=== PATIENT | male | born 1960 | race Caucasian/White ===

== ENCOUNTER → 2020-04-19 | Outpatient (CLI) | payer OTHER ==
[~2020-04-19] MED LIST: ALAVERT10 M1 PO; AMBIEN5 MG PO; BACTRIM DS 8001 TA1 PO; EC NAPROSYN500 MG PO; FEOSOL300 MG PO; FLOVENT 220 M220 MCG INH; JANUVIA100 MG PO; KEFLEX500 MG PO; LEXAPRO20 MG PO; LISINOPRIL HCTZ1 TA1 PO; LISINOPRIL10 MG PO; LISINOPRIL20 MG PO; LOPRESSOR25 MG PO; LOVASTATIN20 MG PO; METFORMIN500 MG PO; NAPROSYN500 MG PO; NORCO 325 MG-51 TAB PO; PARAFON FORTE500 MG PO; PROAIR HFA0.09 MG/AC INH; PROTONIX40 MG PO; VENTOLIN0.09 MG/AC INH
[2020-04-19 10:25] LABS: BASO # 0.1 10*3/uL (0.0-0.1); BASO % 0.5 % (0.0-1.0); EOS # 0.2 10*3/uL (0.0-0.4); EOS % 1.3 % (1.0-4.0); HEMATOCRIT 43.1 % (42.0-52.0); LYMPH # 2.3 10*3/uL (1.3-4.4); LYMPH % 18.9 % (27.0-41.0); MEAN CELL VOLUME 94.3 fl (80.0-94.0); MEAN CORPUSCULAR HGB 30.6 pg (27.0-31.0); MEAN CORPUSCULAR HGB CONC 32.5 g/dl (33.0-37.0); MEAN PLATELET VOLUME 10.7 fl (9.6-12.3); MONO # 0.7 10*3/uL (0.1-1.0); MONO % 5.8 % (3.0-9.0); NEUT # 8.9 10*3/uL (2.3-7.9); NEUT % 73.1 % (47.0-73.0); PLATELET COUNT AUTOMATED 253 10*3/uL (130-400); RED BLOOD COUNT 4.57 10*6/uL (4.50-5.90); RED CELL DISTRI WIDTH 13.9 % (0-14.5); WHITE BLOOD COUNT 12.2 10*3/uL (4.8-10.8)
[2020-04-19 10:52] LABS: ALBUMIN 3.1 gm/dl (3.1-4.5); ALKALINE PHOSPHATASE 85 U/L (45-117); BUN 24 mg/dl (7-24); CHLORIDE 109 mmol/L (98-107); CHOLESTEROL 138 mg/dL (<200); CREATININE 1.28 mg/dL (0.70-1.30); HDL CHOLESTEROL 45 mg/dl (40-60); LDL CHOLESTEROL 67 mg/dL (9-159); POTASSIUM 4.2 mmol/L (3.5-5.1); SGOT/AST 8 IU/L (3-35); SGPT/ALT 18 U/L (12-78); SODIUM 141 mmol/L (136-145); TOTAL PROTEIN 6.8 gm/dL (6.4-8.2); TRIGLYCERIDES 131 mg/dl (<150); URIC ACID 7.2 mg/dL (3.5-7.2); VLDL CHOLESTEROL 26 mg/dL (6-40)
== END | disposition home or self-care (01) ==
LOC: LAB 09:57
PROVIDERS: ATTEND Nurse Practitioner Family
DX: I10 Essential (primary) hypertension (principal); E78.2 Mixed hyperlipidemia; E11.65 Type 2 diabetes mellitus with hyperglycemia; M10.9 Gout, unspecified

== ENCOUNTER 2021-01-23 11:26 | Inpatient (IN) | payer OTHER ==
[~2021-01-23] VITALS: Ht 180.3 cm; Wt 176.4 kg
[~2021-01-23 11:26] MED LIST changes: -PROAIR HFA0.09 MG/AC INH; +PROAIR HFA8.5 GM INH
[2021-01-23 11:27] VITALS: BP 187/88
[2021-01-23 12:00] VITALS: BP 130/80
[2021-01-23 12:05] LABS: BASO % 0.3 % (0.0-1.0); EOS # 0.1 10*3/uL (0.0-0.4); EOS % 0.7 % (1.0-4.0); HEMATOCRIT 40.2 % (42.0-52.0); LYMPH # 1.3 10*3/uL (1.3-4.4); LYMPH % 9.8 % (27.0-41.0); MEAN CELL VOLUME 94.6 fl (80.0-94.0); MEAN CORPUSCULAR HGB 30.6 pg (27.0-31.0); MEAN CORPUSCULAR HGB CONC 32.3 g/dl (33.0-37.0); MEAN PLATELET VOLUME 10.2 fl (9.6-12.3); MONO # 0.9 10*3/uL (0.1-1.0); MONO % 6.3 % (3.0-9.0); NEUT # 11.2 10*3/uL (2.3-7.9); NEUT % 82.5 % (47.0-73.0); PLATELET COUNT AUTOMATED 297 10*3/uL (130-400); RED BLOOD COUNT 4.25 10*6/uL (4.50-5.90); RED CELL DISTRI WIDTH 15.2 % (0-14.5); WHITE BLOOD COUNT 13.6 10*3/uL (4.8-10.8)
[2021-01-23 12:18] LABS: ACT PARTIAL THROMBO TIME 26.9 SECONDS (20.0-32.1); INTERNATIONAL NORM RATIO 1.1 (2.0-3.5)
[2021-01-23 12:23] LABS: ALBUMIN 2.7 gm/dl (3.1-4.5); BUN 21 mg/dl (7-24); CHLORIDE 108 mmol/L (98-107); CREATININE 1.19 mg/dL (0.70-1.30); POTASSIUM 3.9 mmol/L (3.5-5.1); SGOT/AST 12 IU/L (3-35); SGPT/ALT 24 U/L (12-78); SODIUM 142 mmol/L (136-145); TOTAL PROTEIN 6.7 gm/dL (6.4-8.2)
[2021-01-23 12:27] LABS: ALKALINE PHOSPHATASE 91 U/L (45-117)
[2021-01-23 12:31] LABS: TROPONIN I 0.053 ng/ml (<0.045)
[2021-01-23 14:30] VITALS: BP 187/84
[2021-01-23 17:34] VITALS: BP 182/77
[2021-01-23 21:52] VITALS: BP 189/98
[2021-01-24] VITALS: BP 153/84
[2021-01-24 05:45] LABS: ALBUMIN 2.5 gm/dl (3.1-4.5); BUN 27 mg/dl (7-24); CHLORIDE 108 mmol/L (98-107); CHOLESTEROL 219 mg/dL (<200); CREATININE 1.29 mg/dL (0.70-1.30); POTASSIUM 4.4 mmol/L (3.5-5.1); SGOT/AST 14 IU/L (3-35); SGPT/ALT 23 U/L (12-78); SODIUM 140 mmol/L (136-145); TRIGLYCERIDES 74 mg/dl (<150)
[2021-01-24 05:53] LABS: ALKALINE PHOSPHATASE 86 U/L (45-117); LDL CHOLESTEROL 147 mg/dL (9-159); TOTAL PROTEIN 6.3 gm/dL (6.4-8.2)
[2021-01-24 06:21] LABS: BASO % 0.1 % (0.0-1.0); HEMATOCRIT 37.9 % (42.0-52.0); LYMPH # 0.9 10*3/uL (1.3-4.4); LYMPH % 6.7 % (27.0-41.0); MEAN CELL VOLUME 94.5 fl (80.0-94.0); MEAN CORPUSCULAR HGB 30.4 pg (27.0-31.0); MEAN CORPUSCULAR HGB CONC 32.2 g/dl (33.0-37.0); MONO # 0.5 10*3/uL (0.1-1.0); MONO % 3.3 % (3.0-9.0); NEUT # 12.3 10*3/uL (2.3-7.9); NEUT % 89.4 % (47.0-73.0); PLATELET COUNT AUTOMATED 291 10*3/uL (130-400); RED BLOOD COUNT 4.01 10*6/uL (4.50-5.90); RED CELL DISTRI WIDTH 14.7 % (0-14.5); WHITE BLOOD COUNT 13.7 10*3/uL (4.8-10.8)
[2021-01-24 06:35] VITALS: BP 162/71
[2021-01-24 08:00] VITALS: BP 130/85
[2021-01-25 00:19] VITALS: BP 137/84
[2021-01-25 06:16] LABS: BASO % 0.1 % (0.0-1.0); HEMATOCRIT 39.7 % (42.0-52.0); LYMPH # 1.7 10*3/uL (1.3-4.4); LYMPH % 9.7 % (27.0-41.0); MEAN CELL VOLUME 97.3 fl (80.0-94.0); MEAN CORPUSCULAR HGB 30.4 pg (27.0-31.0); MEAN CORPUSCULAR HGB CONC 31.2 g/dl (33.0-37.0); MEAN PLATELET VOLUME 10.7 fl (9.6-12.3); MONO % 5.8 % (3.0-9.0); NEUT # 14.6 10*3/uL (2.3-7.9); NEUT % 83.8 % (47.0-73.0); PLATELET COUNT AUTOMATED 322 10*3/uL (130-400); RED BLOOD COUNT 4.08 10*6/uL (4.50-5.90); WHITE BLOOD COUNT 17.5 10*3/uL (4.8-10.8)
[2021-01-25 06:31] LABS: ALBUMIN 2.7 gm/dl (3.1-4.5); POTASSIUM 4.9 mmol/L (3.5-5.1)
[2021-01-25 06:34] LABS: CREATININE 1.71 mg/dL (0.70-1.30); TOTAL PROTEIN 6.6 gm/dL (6.4-8.2)
[2021-01-25 08:00] VITALS: BP 158/68
[2021-01-25 12:00] VITALS: BP 158/68
[2021-01-25 16:00] VITALS: BP 136/65
[2021-01-25 20:00] VITALS: BP 151/87
[2021-01-26] VITALS: BP 127/78
[2021-01-26] MEDS ORDERED: AMLODIPINE BESYL5 MG PO (05:06)
[2021-01-26] MEDS ORDERED: OMEPRAZOLE MAGN20 MG PO (05:07)
[2021-01-26] MEDS ORDERED: SIMVASTATIN20 MG PO (05:07)
[2021-01-26] MEDS ORDERED: METFORMIN HYDR500 MG PO (05:07)
[2021-01-26] MEDS ORDERED: LANTUS SOL100 UNIT/1 SC (06:07)
[2021-01-26] MEDS ORDERED: METOPROLOL SUCC50 M1 PO (06:07)
[2021-01-26] MEDS ORDERED: ALLOPURINOL300 MG PO (06:08)
[2021-01-26] MEDS ORDERED: BUDESONIDE-FO10.2 G1 INH (06:09)
[2021-01-26 06:43] LABS: BASO % 0.1 % (0.0-1.0); HEMATOCRIT 39.4 % (42.0-52.0); LYMPH # 1.1 10*3/uL (1.3-4.4); LYMPH % 6.8 % (27.0-41.0); MEAN CELL VOLUME 95.9 fl (80.0-94.0); MEAN CORPUSCULAR HGB 30.4 pg (27.0-31.0); MEAN CORPUSCULAR HGB CONC 31.7 g/dl (33.0-37.0); MEAN PLATELET VOLUME 10.6 fl (9.6-12.3); MONO # 0.8 10*3/uL (0.1-1.0); MONO % 5.1 % (3.0-9.0); NEUT # 13.6 10*3/uL (2.3-7.9); NEUT % 87.4 % (47.0-73.0); PLATELET COUNT AUTOMATED 282 10*3/uL (130-400); RED BLOOD COUNT 4.11 10*6/uL (4.50-5.90); RED CELL DISTRI WIDTH 14.6 % (0-14.5); WHITE BLOOD COUNT 15.5 10*3/uL (4.8-10.8)
[2021-01-26 06:55] LABS: CREATININE 1.47 mg/dL (0.70-1.30); POTASSIUM 4.8 mmol/L (3.5-5.1)
[2021-01-26 08:00] VITALS: BP 172/80
[2021-01-26 12:00] VITALS: BP 100/81
[2021-01-26] MEDS ORDERED: PREDNISONE10 MG PO (12:30)
[2021-01-26] MEDS ORDERED: DOXYCYCLINE HY100 M3 PO (12:30)
[2021-01-26 16:00] VITALS: BP 117/73
[2021-01-26 20:00] VITALS: BP 152/88; BP 160/94
[2021-01-27] VITALS: BP 148/72
[2021-01-27 08:00] VITALS: BP 160/68
== END 2021-01-27 10:00 | disposition home or self-care (01) | DRG 720 ==
LOC: ED 11:26 → 4E 14:09 → EDHOLD 14:09 → 4E 01-24 13:41
PROVIDERS: Emergency Medicine; Internal Medicine; ADMIT Family Medicine; ATTEND Family Medicine
PROC: 5A0935A Assistance with Respiratory Ventilation, Less than 24 Consecutive Hours, High Flow/Velocity Cannula (ICD-10-PCS; principal; 2021-01-25)
DX: A41.9 Sepsis, unspecified organism (principal); J44.1 Chronic obstructive pulmonary disease with (acute) exacerbation; J96.01 Acute respiratory failure with hypoxia; Z20.822 Contact with and (suspected) exposure to COVID-19; E43 Unspecified severe protein-calorie malnutrition; K21.9 Gastro-esophageal reflux disease without esophagitis; J18.9 Pneumonia, unspecified organism; D53.9 Nutritional anemia, unspecified; R65.20 Severe sepsis without septic shock; E87.8 Other disorders of electrolyte and fluid balance, not elsewhere classified; E11.65 Type 2 diabetes mellitus with hyperglycemia; I10 Essential (primary) hypertension; E78.5 Hyperlipidemia, unspecified; J44.0 Chronic obstructive pulmonary disease with (acute) lower respiratory infection; Z88.8 Allergy status to other drugs, medicaments and biological substances; Z79.51 Long term (current) use of inhaled steroids; Z79.899 Other long term (current) drug therapy; Z68.43 Body mass index [BMI] 50.0-59.9, adult

== ENCOUNTER 2021-04-20 13:41 | Inpatient (IN) | payer OTHER ==
[~2021-04-20] VITALS: Ht 177.8 cm; Wt 205.0 kg
[~2021-04-20 13:41] MED LIST changes: +ALLOPURINOL300 MG PO; +AMLODIPINE BESYL5 MG PO; +BUDESONIDE-FO10.2 G1 INH; +DOXYCYCLINE HY100 M3 PO; +LANTUS SOL100 UNIT/1 SC; +METFORMIN HYDR500 MG PO; +METOPROLOL SUCC50 M1 PO; +OMEPRAZOLE MAGN20 MG PO; +PREDNISONE10 MG PO; +SIMVASTATIN20 MG PO
[2021-04-20 13:46] VITALS: BP 182/84
[2021-04-20 14:25] LABS: BASO # 0.1 10*3/uL (0.0-0.1); BASO % 0.3 % (0.0-1.0); EOS % 0.2 % (1.0-4.0); HEMATOCRIT 40.5 % (42.0-52.0); LYMPH # 1.1 10*3/uL (1.3-4.4); LYMPH % 7.3 % (27.0-41.0); MEAN CELL VOLUME 93.5 fl (80.0-94.0); MEAN CORPUSCULAR HGB CONC 32.1 g/dl (33.0-37.0); MEAN PLATELET VOLUME 11.6 fl (9.6-12.3); MONO # 0.7 10*3/uL (0.1-1.0); MONO % 4.8 % (3.0-9.0); NEUT # 12.6 10*3/uL (2.3-7.9); NEUT % 86.9 % (47.0-73.0); PLATELET COUNT AUTOMATED 217 10*3/uL (130-400); RED BLOOD COUNT 4.33 10*6/uL (4.50-5.90); RED CELL DISTRI WIDTH 14.1 % (0-14.5); WHITE BLOOD COUNT 14.5 10*3/uL (4.8-10.8)
[2021-04-20 14:35] LABS: ACT PARTIAL THROMBO TIME 27.8 SECONDS (20.0-32.1); INTERNATIONAL NORM RATIO 1.1 (2.0-3.5)
[2021-04-20 14:40] LABS: ALKALINE PHOSPHATASE 81 U/L (45-117); BUN 21 mg/dl (7-24); CHLORIDE 109 mmol/L (98-107); POTASSIUM 4.2 mmol/L (3.5-5.1); SGOT/AST 15 IU/L (3-35); SGPT/ALT 28 U/L (12-78); SODIUM 143 mmol/L (136-145); TOTAL PROTEIN 6.6 gm/dL (6.4-8.2)
[2021-04-20 20:04] VITALS: BP 169/89
[2021-04-20 23:30] VITALS: BP 166/91
[2021-04-21 04:00] VITALS: BP 168/88
[2021-04-21 05:40] LABS: ALKALINE PHOSPHATASE 67 U/L (45-117); BUN 25 mg/dl (7-24); CHLORIDE 109 mmol/L (98-107); CREATININE 1.21 mg/dL (0.70-1.30); POTASSIUM 4.3 mmol/L (3.5-5.1); SGOT/AST 13 IU/L (3-35); SGPT/ALT 22 U/L (12-78); SODIUM 140 mmol/L (136-145); TOTAL PROTEIN 5.9 gm/dL (6.4-8.2)
[2021-04-21 05:59] VITALS: BP 130/56
[2021-04-21 06:23] LABS: BASO % 0.2 % (0.0-1.0); HEMATOCRIT 35.4 % (42.0-52.0); LYMPH # 1.1 10*3/uL (1.3-4.4); LYMPH % 6.7 % (27.0-41.0); MEAN CELL VOLUME 91.7 fl (80.0-94.0); MEAN CORPUSCULAR HGB 29.5 pg (27.0-31.0); MEAN CORPUSCULAR HGB CONC 32.2 g/dl (33.0-37.0); MEAN PLATELET VOLUME 12.3 fl (9.6-12.3); MONO # 1.4 10*3/uL (0.1-1.0); MONO % 8.9 % (3.0-9.0); NEUT # 13.3 10*3/uL (2.3-7.9); NEUT % 83.9 % (47.0-73.0); PLATELET COUNT AUTOMATED 210 10*3/uL (130-400); RED BLOOD COUNT 3.86 10*6/uL (4.50-5.90); RED CELL DISTRI WIDTH 14.2 % (0-14.5); WHITE BLOOD COUNT 15.9 10*3/uL (4.8-10.8)
[2021-04-21 14:00] VITALS: BP 172/86
[2021-04-21 18:00] VITALS: BP 164/88
[2021-04-21 20:00] VITALS: BP 133/62
[2021-04-22] VITALS: BP 135/66
[2021-04-22 06:28] LABS: HEMATOCRIT 33.1 % (42.0-52.0); MEAN CORPUSCULAR HGB 30.6 pg (27.0-31.0); MEAN CORPUSCULAR HGB CONC 32.9 g/dl (33.0-37.0); MEAN PLATELET VOLUME 12.1 fl (9.6-12.3); PLATELET COUNT AUTOMATED 178 10*3/uL (130-400); RED BLOOD COUNT 3.56 10*6/uL (4.50-5.90); RED CELL DISTRI WIDTH 14.3 % (0-14.5); WHITE BLOOD COUNT 14.2 10*3/uL (4.8-10.8)
[2021-04-22 06:50] LABS: CHLORIDE 105 mmol/L (98-107); POTASSIUM 4.5 mmol/L (3.5-5.1); SODIUM 138 mmol/L (136-145)
[2021-04-22 06:51] LABS: MANUAL DIFF REFLEX YES
[2021-04-22 06:54] LABS: ALKALINE PHOSPHATASE 66 U/L (45-117); BUN 28 mg/dl (7-24); CREATININE 1.33 mg/dL (0.70-1.30); SGOT/AST 11 IU/L (3-35); SGPT/ALT 20 U/L (12-78); TOTAL PROTEIN 5.7 gm/dL (6.4-8.2)
[2021-04-22 07:51] LABS: POLYCHROMASIA SLIGHT; TOTAL CELLS COUNTED 100 #CELLS
[2021-04-22 07:52] LABS: PLATELET SUFFICIENCY NORMAL (NORMAL)
[2021-04-22 08:00] VITALS: BP 146/78
[2021-04-22 12:00] VITALS: BP 130/62
[2021-04-22 17:23] VITALS: BP 141/61
[2021-04-22 20:16] VITALS: BP 134/64
[2021-04-23] VITALS: BP 132/51
[2021-04-23 06:51] LABS: HEMATOCRIT 32.5 % (42.0-52.0); MEAN CELL VOLUME 92.9 fl (80.0-94.0); MEAN CORPUSCULAR HGB CONC 32.3 g/dl (33.0-37.0); MEAN PLATELET VOLUME 12.1 fl (9.6-12.3); PLATELET COUNT AUTOMATED 198 10*3/uL (130-400); WHITE BLOOD COUNT 14.4 10*3/uL (4.8-10.8)
[2021-04-23 06:55] LABS: BUN 29 mg/dl (7-24); CHLORIDE 107 mmol/L (98-107); CREATININE 1.19 mg/dL (0.70-1.30); MANUAL DIFF REFLEX YES; POTASSIUM 4.3 mmol/L (3.5-5.1); SODIUM 139 mmol/L (136-145)
[2021-04-23 08:00] VITALS: BP 158/50
[2021-04-23 08:10] LABS: PLATELET SUFFICIENCY NORMAL (NORMAL); POLYCHROMASIA SLIGHT; TOTAL CELLS COUNTED 100 #CELLS
[2021-04-23 12:00] VITALS: BP 155/69
[2021-04-23 16:00] VITALS: BP 154/55
[2021-04-23 20:00] VITALS: BP 153/60
[2021-04-24] VITALS: BP 145/61
[2021-04-24 06:34] LABS: HEMATOCRIT 32.5 % (42.0-52.0); MEAN CELL VOLUME 92.3 fl (80.0-94.0); MEAN CORPUSCULAR HGB 29.8 pg (27.0-31.0); MEAN CORPUSCULAR HGB CONC 32.3 g/dl (33.0-37.0); MEAN PLATELET VOLUME 11.5 fl (9.6-12.3); PLATELET COUNT AUTOMATED 248 10*3/uL (130-400); RED BLOOD COUNT 3.52 10*6/uL (4.50-5.90); RED CELL DISTRI WIDTH 14.1 % (0-14.5); WHITE BLOOD COUNT 15.4 10*3/uL (4.8-10.8)
[2021-04-24 06:49] LABS: BUN 29 mg/dl (7-24); CHLORIDE 105 mmol/L (98-107); CREATININE 1.23 mg/dL (0.70-1.30); POTASSIUM 4.6 mmol/L (3.5-5.1); SODIUM 138 mmol/L (136-145)
[2021-04-24 07:10] LABS: MANUAL DIFF REFLEX YES
[2021-04-24 07:43] LABS: BASOPHILS 1 % (0-1); PLATELET SUFFICIENCY NORMAL (NORMAL); POLYCHROMASIA SLIGHT; TOTAL CELLS COUNTED 100 #CELLS
[2021-04-24 08:00] VITALS: BP 145/66
[2021-04-24 12:00] VITALS: BP 158/78
[2021-04-24 16:00] VITALS: BP 140/63
[2021-04-24 20:00] VITALS: BP 151/62
[2021-04-25] VITALS (8 sets, daily range): BP systolic 113–155; BP diastolic 48–65
[2021-04-25 06:52] LABS: BUN 33 mg/dl (7-24); CHLORIDE 107 mmol/L (98-107); CREATININE 1.23 mg/dL (0.70-1.30); POTASSIUM 4.6 mmol/L (3.5-5.1); SODIUM 140 mmol/L (136-145)
[2021-04-25 07:07] LABS: HEMATOCRIT 32.3 % (42.0-52.0); MEAN CORPUSCULAR HGB 30.5 pg (27.0-31.0); MEAN CORPUSCULAR HGB CONC 33.1 g/dl (33.0-37.0); MEAN PLATELET VOLUME 11.3 fl (9.6-12.3); PLATELET COUNT AUTOMATED 277 10*3/uL (130-400); RED BLOOD COUNT 3.51 10*6/uL (4.50-5.90); WHITE BLOOD COUNT 12.8 10*3/uL (4.8-10.8)
[2021-04-25 07:19] LABS: MANUAL DIFF REFLEX YES
[2021-04-25 07:33] LABS: BASOPHILS 1 % (0-1); TOTAL CELLS COUNTED 100 #CELLS
[2021-04-25 07:34] LABS: PLATELET SUFFICIENCY NORMAL (NORMAL)
[2021-04-26] VITALS: BP 152/75
[2021-04-26 06:40] LABS: BASO % 0.1 % (0.0-1.0); HEMATOCRIT 32.4 % (42.0-52.0); LYMPH # 0.7 10*3/uL (1.3-4.4); LYMPH % 4.3 % (27.0-41.0); MEAN CELL VOLUME 90.8 fl (80.0-94.0); MEAN CORPUSCULAR HGB 29.4 pg (27.0-31.0); MEAN CORPUSCULAR HGB CONC 32.4 g/dl (33.0-37.0); MONO # 1.1 10*3/uL (0.1-1.0); MONO % 7.1 % (3.0-9.0); NEUT % 87.7 % (47.0-73.0); PLATELET COUNT AUTOMATED 299 10*3/uL (130-400); RED BLOOD COUNT 3.57 10*6/uL (4.50-5.90); RED CELL DISTRI WIDTH 13.6 % (0-14.5)
[2021-04-26 06:58] LABS: BUN 34 mg/dl (7-24); CHLORIDE 103 mmol/L (98-107); POTASSIUM 4.8 mmol/L (3.5-5.1); SODIUM 136 mmol/L (136-145)
[2021-04-26 07:04] LABS: ALKALINE PHOSPHATASE 98 U/L (45-117); CREATININE 1.22 mg/dL (0.70-1.30); SGOT/AST 33 IU/L (3-35); SGPT/ALT 36 U/L (12-78); TOTAL PROTEIN 5.8 gm/dL (6.4-8.2)
[2021-04-26 07:59] VITALS: BP 152/66
[2021-04-26 11:58] VITALS: BP 97/46
[2021-04-26 16:00] VITALS: BP 148/88
[2021-04-26 20:00] VITALS: BP 121/82
[2021-04-27] VITALS: BP 147/81
[2021-04-27 06:31] LABS: BASO % 0.2 % (0.0-1.0); EOS % 0.1 % (1.0-4.0); HEMATOCRIT 33.8 % (42.0-52.0); LYMPH # 2.4 10*3/uL (1.3-4.4); LYMPH % 14.9 % (27.0-41.0); MEAN CELL VOLUME 90.6 fl (80.0-94.0); MEAN CORPUSCULAR HGB CONC 33.1 g/dl (33.0-37.0); MEAN PLATELET VOLUME 10.7 fl (9.6-12.3); MONO # 1.5 10*3/uL (0.1-1.0); MONO % 9.2 % (3.0-9.0); NEUT % 74.9 % (47.0-73.0); PLATELET COUNT AUTOMATED 386 10*3/uL (130-400); RED BLOOD COUNT 3.73 10*6/uL (4.50-5.90); RED CELL DISTRI WIDTH 13.6 % (0-14.5); WHITE BLOOD COUNT 16.1 10*3/uL (4.8-10.8)
[2021-04-27 06:34] LABS: BUN 38 mg/dl (7-24); CHLORIDE 105 mmol/L (98-107); CREATININE 1.21 mg/dL (0.70-1.30); POTASSIUM 4.7 mmol/L (3.5-5.1); SODIUM 139 mmol/L (136-145)
[2021-04-27 08:00] VITALS: BP 152/83
[2021-04-27 12:03] VITALS: BP 143/72
[2021-04-27 16:00] VITALS: BP 132/60
[2021-04-27 20:00] VITALS: BP 131/78
[2021-04-28] VITALS: BP 120/88
[2021-04-28 06:22] LABS: BUN 40 mg/dl (7-24); CHLORIDE 106 mmol/L (98-107); POTASSIUM 4.8 mmol/L (3.5-5.1); SODIUM 140 mmol/L (136-145)
[2021-04-28 06:24] LABS: CREATININE 1.11 mg/dL (0.70-1.30)
[2021-04-28 06:40] LABS: HEMATOCRIT 35.8 % (42.0-52.0); MEAN CELL VOLUME 92.5 fl (80.0-94.0); MEAN CORPUSCULAR HGB 29.7 pg (27.0-31.0); MEAN CORPUSCULAR HGB CONC 32.1 g/dl (33.0-37.0); MEAN PLATELET VOLUME 11.1 fl (9.6-12.3); PLATELET COUNT AUTOMATED 417 10*3/uL (130-400); RED BLOOD COUNT 3.87 10*6/uL (4.50-5.90); RED CELL DISTRI WIDTH 13.8 % (0-14.5); WHITE BLOOD COUNT 13.5 10*3/uL (4.8-10.8)
[2021-04-28 06:42] LABS: MANUAL DIFF REFLEX YES
[2021-04-28 07:58] LABS: BASOPHILS 1 % (0-1); BURR CELLS FEW; PLATELET SUFFICIENCY HIGH (NORMAL); POLYCHROMASIA SLIGHT; TOTAL CELLS COUNTED 100 #CELLS
[2021-04-28 08:00] VITALS: BP 128/76
[2021-04-28 12:00] VITALS: BP 105/68
[2021-04-28 16:00] VITALS: BP 144/98
[2021-04-28 19:58] VITALS: BP 116/52
[2021-04-28 23:13] VITALS: BP 135/58
[2021-04-29 06:42] LABS: HEMATOCRIT 34.2 % (42.0-52.0); MEAN CELL VOLUME 92.4 fl (80.0-94.0); MEAN CORPUSCULAR HGB CONC 32.5 g/dl (33.0-37.0); MEAN PLATELET VOLUME 10.5 fl (9.6-12.3); PLATELET COUNT AUTOMATED 409 10*3/uL (130-400); RED CELL DISTRI WIDTH 13.7 % (0-14.5); WHITE BLOOD COUNT 16.4 10*3/uL (4.8-10.8)
[2021-04-29 06:47] LABS: MANUAL DIFF REFLEX YES
[2021-04-29 06:57] LABS: CREATININE 1.28 mg/dL (0.70-1.30)
[2021-04-29 08:00] VITALS: BP 104/84
[2021-04-29 08:26] LABS: BASOPHILS 1 % (0-1); TOTAL CELLS COUNTED 100 #CELLS
[2021-04-29 08:27] LABS: PLATELET SUFFICIENCY HIGH (NORMAL); POLYCHROMASIA SLIGHT; TOXIC GRANULATION SLIGHT
[2021-04-29 08:28] LABS: BURR CELLS FEW
[2021-04-29] MEDS ORDERED: DICLOFENAC SOD100 G1 T (11:09)
[2021-04-29] MEDS ORDERED: HYDROCODONE-AC1 EACH PO (11:09)
[2021-04-29] MEDS ORDERED: NYAMYC15 GM T (11:09)
[2021-04-29 12:00] VITALS: BP 128/72
== END 2021-04-29 18:57 | DRG 315 ==
LOC: ED 13:41 → 5E 15:18 → EDHOLD 15:18 → 5E 04-21 18:26
PROVIDERS: Emergency Medicine; Internal Medicine; Physical Therapist; ADMIT Internal Medicine; ATTEND Internal Medicine
PROC: 0PSJ04Z Reposition Left Radius with Internal Fixation Device, Open Approach (ICD-10-PCS; principal; 2021-04-25)
PROC: 3E0T3BZ Introduction of Anesthetic Agent into Peripheral Nerves and Plexi, Percutaneous Approach (ICD-10-PCS; 2021-04-25)
PROC: 3E0T33Z Introduction of Anti-inflammatory into Peripheral Nerves and Plexi, Percutaneous Approach (ICD-10-PCS; 2021-04-25)
DX: S52.572A Other intraarticular fracture of lower end of left radius, initial encounter for closed fracture (principal); S42.292A Other displaced fracture of upper end of left humerus, initial encounter for closed fracture; S93.402A Sprain of unspecified ligament of left ankle, initial encounter; E44.0 Moderate protein-calorie malnutrition; Z20.822 Contact with and (suspected) exposure to COVID-19; D64.9 Anemia, unspecified; E87.8 Other disorders of electrolyte and fluid balance, not elsewhere classified; K21.9 Gastro-esophageal reflux disease without esophagitis; E78.5 Hyperlipidemia, unspecified; I10 Essential (primary) hypertension; E66.01 Morbid (severe) obesity due to excess calories; E11.9 Type 2 diabetes mellitus without complications; W00.9XXA Unspecified fall due to ice and snow, initial encounter; G47.33 Obstructive sleep apnea (adult) (pediatric); F17.210 Nicotine dependence, cigarettes, uncomplicated; Z68.44 Body mass index [BMI] 60.0-69.9, adult; Z88.8 Allergy status to other drugs, medicaments and biological substances; Z82.49 Family history of ischemic heart disease and other diseases of the circulatory system; Z79.4 Long term (current) use of insulin; Z83.3 Family history of diabetes mellitus; Y93.29 Activity, other involving ice and snow; Y92.89 Other specified places as the place of occurrence of the external cause; Y99.8 Other external cause status; Z79.51 Long term (current) use of inhaled steroids; Z79.899 Other long term (current) drug therapy

== ENCOUNTER → 2021-05-07 | Outpatient (CLI) | payer OTHER ==
[~2021-05-07] MED LIST changes: +DICLOFENAC SOD100 G1 T; +HYDROCODONE-AC1 EACH PO; +NYAMYC15 GM T
== END | disposition home or self-care (01) ==
LOC: ORTHO 01:22
PROVIDERS: ATTEND Orthopaedic Surgery
DX: S42.292A Other displaced fracture of upper end of left humerus, initial encounter for closed fracture (principal); S52.572A Other intraarticular fracture of lower end of left radius, initial encounter for closed fracture; X58.XXXA Exposure to other specified factors, initial encounter; Y93.89 Activity, other specified; Y92.89 Other specified places as the place of occurrence of the external cause; Y99.8 Other external cause status

== ENCOUNTER → 2021-06-04 | Outpatient (CLI) | payer OTHER | END | disposition home or self-care (01) | LOC: ORTHO 01:00 | PROVIDERS: ATTEND Orthopaedic Surgery | DX: S42.292D Other displaced fracture of upper end of left humerus, subsequent encounter for fracture with routine healing (principal); S52.572D Other intraarticular fracture of lower end of left radius, subsequent encounter for closed fracture with routine healing; X58.XXXD Exposure to other specified factors, subsequent encounter ==